=== PATIENT | male | born 1955 | race Caucasian/White ===

== ENCOUNTER 2019-01-11 13:58 | Emergency (ER) | payer MEDICARE, OTHER ==
[2019-01-11 14:04] VITALS: TEMP 98.1
[2019-01-11] MEDS ORDERED: AMOXIC-POT CLAV 875-125MG 1 EACH TAB PO STA (14:19)
[2019-01-11] MEDS ORDERED: KETOROLAC 60 MG/2 ML VIAL IM STA (14:19)
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
[2019-01-11 15:18] VITALS: PULSE 75; RESP 16
[2019-01-11] MEDS ORDERED: LABETALOL SYRINGE 5 MG/ML IVP STA (15:18)
[2019-01-11] MEDS ORDERED: cloNIDine HCL 0.2 MG TAB PO STA (15:35)
[2019-01-11 16:06] VITALS: BP 188/96
== END 2019-01-11 16:06 | disposition home or self-care (01) ==
LOC: EC 13:58
DX: K08.89 Other specified disorders of teeth and supporting structures (principal); I10 Essential (primary) hypertension; Z88.5 Allergy status to narcotic agent; Z91.02 Food additives allergy status; Z79.899 Other long term (current) drug therapy; Z96.5 Presence of tooth-root and mandibular implants; Z53.8 Procedure and treatment not carried out for other reasons
CPT/HCPCS: 99283; 96372; J1885

== ENCOUNTER 2019-01-14 10:38 | Emergency (ER) | payer MEDICARE, OTHER ==
[2019-01-14] MEDS ORDERED: ENALAPRILAT 1.25 MG/ML 1 ML VIAL IVP STA ×2 (11:19→12:46)
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
[2019-01-14 12:23] VITALS: RESP 16
[2019-01-14 13:19] VITALS: BP 152/94; PULSE 71; TEMP 97.9
== END 2019-01-14 13:18 | disposition home or self-care (01) ==
LOC: EC 10:38
DX: I10 Essential (primary) hypertension (principal); K21.9 Gastro-esophageal reflux disease without esophagitis; Z79.899 Other long term (current) drug therapy; Z91.018 Allergy to other foods; Z88.5 Allergy status to narcotic agent
CPT/HCPCS: 96374; 96376; 99283

== ENCOUNTER 2023-09-22 11:30 | Inpatient (IN) | payer MEDICARE, OTHER ==
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
[2023-09-22] MEDS: LORazepam 2 MG/ML INJ IV STA (11:51)
[2023-09-22] MEDS: SODIUM CHLORIDE 0.9% 1,000 ML IV STA (11:53)
[2023-09-22 12:05] LABS: Basophils % (A) 0 %; Eosinophils # (A) 0.2 k/uL (0-0.7); Eosinophils % (A) 2 %; HCT 50.4 % (39.0-53.0); HGB 16.4 gm/dL (13.0-17.5); Lymphocytes # (A) 2.5 k/uL (1.0-4.8); Lymphocytes % (A) 21 %; MCH 28.8 pg (25.0-35.0); MCHC 32.4 g/dL (31.0-37.0); MCV 88.9 fL (80.0-100.0); Mean Platelet Volume 8.3; Monocytes # (A) 0.5 k/uL (0-1.0); Monocytes % (A) 4 %; Neutrophils # (A) 8.2 k/uL (1.3-7.7); Neutrophils % (A) 71 %; Platelet Count 230 k/uL (150-450); RBC 5.67 m/uL (4.30-5.90); RDW 13.1 % (11.5-15.5); WBC 11.5 k/uL (3.8-10.6)
[2023-09-22 12:17] LABS: ALT 21 U/L (4-49); AST 23 U/L (17-59); African American GFR (CKD) >90 (>60 ml/min/1.73 sqM); Albumin 4.8 g/dL (3.5-5.0); Alkaline Phosphatase 97 U/L (38-126); Anion Gap 9 mmol/L; Blood Urea Nitrogen 17 mg/dL (9-20); Calcium 9.6 mg/dL (8.4-10.2); Carbon Dioxide 27 mmol/L (22-30); Chloride 102 mmol/L (98-107); Creatine Kinase 106 U/L (55-170); Glucose 215 mg/dL (74-99); Non-African American GFR(CKD) 81 (>60 ml/min/1.73 sqM); Sodium 138 mmol/L (137-145); Total Bilirubin 0.5 mg/dL (0.2-1.3); Total Protein 8.4 g/dL (6.3-8.2)
[2023-09-22 12:32] LABS: INR 0.9 (<1.2); Prothrombin Time 10.3 sec (10.0-12.5)
--- NOTE | 2023-09-22 12:42 | XR ---
EXAMINATION TYPE: XR chest 2V DATE OF EXAM: 09/22/2023 COMPARISON: 11/03/2015 HISTORY: Altered mental status TECHNIQUE: Frontal and lateral views of the chest are obtained. FINDINGS: There is no focal air space opacity, pleural effusion, or pneumothorax seen. The cardiac silhouette size is within normal limits. The osseous structures are intact. IMPRESSION: No acute cardiopulmonary process.
--- NOTE | 2023-09-22 12:50 | CT ---
EXAMINATION TYPE: CT brain wo con DATE OF EXAM: 09/22/2023 COMPARISON: 11/03/2015 HISTORY: Neuro deficits, pt states he couldn't stand and had slurred speech. CT DLP: 661.4 mGycm Automated exposure control for dose reduction was used. FINDINGS: The ventricles, basal cisterns and sulci over convexities are mildly prominent as with mild age-appro priate atrophy. There is no mass effect or shift of midline structures. No abnormal density is seen throughout the brain parenchyma. The santana-white density differentiation i s well preserved There is no acute intra or extra-axial hemorrhage. The posterior fossa including the brainstem, fourth ventricle and cerebellopontine angles are grossly normal. Intraorbital contents. Normal symmetric. Visualized paranasal sinuses and mastoid air cells are well aerated. IMPRESSION: 1. Mild age-appropriate atrophy. 2. No acute bleed or mass effect. IMPRESSION:
--- NOTE | 2023-09-22 12:59 | CT ---
EXAMINATION TYPE: CT angio head neck DATE OF EXAM: 09/22/2023 HISTORY: Neuro deficits, pt states he couldn't stand and had slurred speech. COMPARISON: None CT DLP: 661.4 mGycm. Automated Exposure Control for Dose Reduction was Utilized. TECHNIQUE: CTA scan of the head and neck is performed with IV Contrast, patient injected with 65 mL of Isovue 370, axial images are obtained, coronal and sagittal reformatted images are reviewed. 3D re constructed images are created on an independent workstation and reviewed. FINDINGS: FINDINGS: The brachiocephalic origins are widely patent and no significant stenosis. There is no significant stenosis of the common or internal carotid arteries within the neck. There is mild calcification of the carotid bifurcations. There is no stenosis of the vertebral arteries. Intracranially, there is no stenosis, segmental occlusion, sizable aneurysm sac or vascular malformat ion. IMPRESSION:. Mild atherosclerotic changes of the carotid bifurcations within the neck but no signific ant stenosis. NASCET criteria was used in interpretation of this exam?
[2023-09-22] MEDS: LABETALOL 5 MG/ML VIAL MDV IVP STA (13:02)
[2023-09-22] MEDS ORDERED: LABETALOL 5 MG/ML VIAL MDV IVP PRN (13:56)
[2023-09-22] MEDS: amLODIPine 5 MG TAB PO STA (14:40)
[2023-09-22] MEDS: ASPIRIN 325 MG TAB PO STA (14:40)
[2023-09-22] MEDS: SODIUM CHLORIDE 0.9% 1,000 ML IV SCH (14:41)
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
[2023-09-22] MEDS ORDERED: ALPRAZolam 0.5 MG TAB PO PRN (17:44)
[2023-09-22] MEDS: ATORVASTATIN 80 MG TAB PO SCH (21:03)
[2023-09-22] MEDS: hydrALAZINE HCL 20 MG/ML 1 ML VIAL IVP PRN (21:03)
[2023-09-22 22:36] LABS: Erythrocyte Sedimentation Rate 16 mm/Hr (0-20)
[2023-09-23 06:59] LABS: HCT 51.1 % (39.0-53.0); HGB 17.1 gm/dL (13.0-17.5); MCH 29.9 pg (25.0-35.0); MCHC 33.5 g/dL (31.0-37.0); MCV 89.2 fL (80.0-100.0); Mean Platelet Volume 8.9; Platelet Count 234 k/uL (150-450); RBC 5.72 m/uL (4.30-5.90); RDW 13.2 % (11.5-15.5); WBC 12.4 k/uL (3.8-10.6)
[2023-09-23 07:15] LABS: ALT 21 U/L (4-49); AST 26 U/L (17-59); African American GFR (CKD) >90 (>60 ml/min/1.73 sqM); Albumin 4.8 g/dL (3.5-5.0); Alkaline Phosphatase 96 U/L (38-126); Anion Gap 12 mmol/L; Blood Urea Nitrogen 16 mg/dL (9-20); Calcium 9.9 mg/dL (8.4-10.2); Carbon Dioxide 21 mmol/L (22-30); Chloride 107 mmol/L (98-107); Glucose 203 mg/dL (74-99); Magnesium 1.9 mg/dL (1.6-2.3); Non-African American GFR(CKD) >90 (>60 ml/min/1.73 sqM); Potassium 4.2 mmol/L (3.5-5.1); Sodium 140 mmol/L (137-145); Total Bilirubin 0.9 mg/dL (0.2-1.3); Total Protein 8.2 g/dL (6.3-8.2)
[2023-09-23] MEDS: ENOXAPARIN 40 MG/0.4 ML SYRINGE SQ SCH (08:10)
[2023-09-23] MEDS: amLODIPine 10 MG TAB PO SCH (08:10)
[2023-09-23] MEDS: ASPIRIN 81 MG PO SCH (08:10)
[2023-09-23 08:33] VITALS: RESP 16
[2023-09-23] MEDS ORDERED: ASPIRIN 325 MG TAB PO SCH (09:00)
[2023-09-23] MEDS ORDERED: amLODIPine 5 MG TAB PO SCH (09:00)
[2023-09-23 09:51] LABS: T4, Free (Free Thyroxine) 1.21 ng/dL (0.78-2.19)
[2023-09-23] MEDS: LORazepam 2 MG/ML INJ IV STA (09:54)
[2023-09-23 11:12] LABS: Chol/HDL Ratio 6.02 Ratio; LDL Cholesterol,Calculated 126.8 mg/dL (0.0-131.0)
--- NOTE | 2023-09-23 11:33 | CA ---
Transthoracic Echo Report Name: Morro Jackson Age: 67 Gender: M : 1955 Exam Date: 09/23/2023 09:05 Exam Location: [facility] Ht (in): 72 Wt (lb): 230 Ordering Physician: Simeon Haksins DO Attending/Referring Phys: Windows Application Packager Chantal Villalobos RDCS Procedure CPT: Indications: Thrombus Cardiac Hx: Technical Quality: Fair Contrast 1: Total Dose (mL): Contrast 2: Total Dose (mL): MEASUREMENTS (Male / Female) Normal Values 2D ECHO LV Diastolic Diameter PLAX 4.2 cm 4.2 - 5.9 / 3.9 - 5.3 cm LV Systolic Diameter PLAX 3.2 cm IVS Diastolic Thickness 2.1 cm 0.6 - 1.0 / 0.6 - 0.9 cm LVPW Diastolic Thickness 1.0 cm 0.6 - 1.0 / 0.6 - 0.9 cm LV Relative Wall Thickness 0.7 Aortic Root Diameter 3.9 cm LA Systolic Diameter LX 4.9 cm 3.0 - 4.0 / 2.7 - 3.8 cm DOPPLER AV Peak Velocity 179.3 cm/s AV Peak Gradient 12.9 mmHg AV Mean Velocity 129.7 cm/s AV Mean Gradient 7.1 mmHg AV Velocity Time Integral 28.7 cm LVOT Peak Velocity 99.9 cm/s LVOT Peak Gradient 4.0 mmHg LVOT Velocity Time Integral 17.3 cm Mitral E Point Velocity 52.2 cm/s Mitral A Point Velocity 103.1 cm/s Mitral E to A Ratio 0.5 MV Deceleration Time 151.3 ms MV E' Velocity 7.3 cm/s Mitral E to MV E' Ratio 7.2 FINDINGS Left Ventricle Left ventricular ejection fraction is estimated at 50-55 %. Moderately increased left ventricular wall thickness. Right Ventricle Right ventricle not well visualized. Right Atrium Right atrium not well visualized. Left Atrium Mild left atrial dilatation. Mitral Valve Mild mitral regurgitation. Aortic Valve Aortic valve not well visualized. Tricuspid Valve Mild tricuspid regurgitation. Pulmonic Valve Trace pulmonic regurgitation. Pericardium Small pericardial effusion. Aorta Normal size aortic root and proximal ascending aorta. CONCLUSIONS Previous echo recorded on 01/14/2014. Left ventricular ejection fraction 50-55% Moderate increased left ventricular wall thickness Mild mitral regurgitation Mild tricuspid regurgitation Small pericardial, no cardiac tamponade physiology Previewed by: Dr. Thuan Carolina DO (Electronically Signed) Final Date: 23 September 2023 11:32
--- NOTE | 2023-09-23 12:54 | MR ---
EXAMINATION TYPE: MR brain wo con DATE OF EXAM: 09/23/2023 12:37 PM CLINICAL INDICATION:Male, 67 years old with history of CVA, aphasia;, CVA, aphasia COMPARISON: 09/22/2023.. TECHNIQUE: Multi planar, multi sequence imaging was performed through the brain including: T1, T2, In version recovery, Diffusion weighted imaging, and gradient echo imaging. No gadolinium was given. FINDINGS: Focus of restricted diffusion within the left higinio also an area more anteriorly and ill-def ined area more in the middle left higinio. High T2 probable remote injury to the left frontal lobe. Mild cerebral atrophy with proportional dilation of ventricular system. Scattered foci of high T2 signa l intensity are seen within the periventricular white matter. Midline structures show no abnormality. The bone marrow signal is within normal limits. Paranasal sinuses and mastoid air cells: No significant paranasal sinus disease. Visualized orbits: Orbital contents are intact. IMPRESSION: 1. Acute/subacute CVA involving the left higinio. 2. Nonspecific white matter changes, likely secondary to small vessel ischemic disease.
[2023-09-23] MEDS: CLOPIDOGREL 75 MG TAB PO SCH (13:52)
--- NOTE | 2023-09-23 14:46 | P.PN ---
Subjective Progress Note Date: 09/23/23 History of Presenting Illness: Patient is a very pleasant 67-year-old male with a past medical history of hypertension, hyperlipidemia, GERD, and cannabis use. He is currently not on any medications and does not follow with a PCP. He presented to the emergency department on 09/22/2023 with a chief complaint of expressive aphasia and headache. Upon arrival to the emergency department patient underwent full evaluation. Vital signs upon arrival show patient to be in significant hypertensive urgency with blood pressure of 235/133, heart rate 96, respiratory rate 20, temp 97.8 F, and SpO2 of 98% on room air. EKG completed showing normal sinus rhythm at 84 bpm with occasional PVC and T wave inversions in lateral leads I and aVL. No previous EKGs available for comparison. CT brain completed revealing mild age-appropriate atrophy negative for acute process, bleed, or mass. CTA neck showing mild atherosclerotic changes of the carotid bifurcations within the neck but no significant stenosis. CTA head negative for acute process showing no stenosis, occlusion, or sizable aneurysm. Labs completed and reviewed. CBC showing mild leukocytosis with WBC count of 11.5. Coagulation profile normal findings. BMP unremarkable with exception of hyperglycemia with a glucose of 215. Liver profile unremarkable. Patient was given aspirin 325 mg p.o. x 1 dose, Ativan 1 mg IVP for anxiety and labetalol 20 mg IVP for hypertensive urgency. Patient was admitted under our services with consultation to neurology. Physical exam: Patient seen and fully evaluated at bedside this morning he continues to have mild expressive aphasia and slurred speech. No other neurodeficits noted. Patient very anxious and agitated this morning. Patient reports just being upset about hospitalization and lack of sleep. Vital signs reviewed and stable. General: Nontoxic, no distress and appears stated age. Derm: Skin warm and dry, normal coloration for ethnicity. Head: Atraumatic, normocephalic and symmetric. Eyes: EOMs intact, no lid lag, and anicteric sclera Mouth: no lip lesions, mucus membranes moist Cardiovascular: regular rate and rhythm with normal S1S2, no murmur, positive posterior tibial pulses bilaterally, and cap refill < 2 seconds. Lungs: Respirations even, regular, and unlabored on room air. Lungs CTA bilaterally, no rhonchi, no rales, no wheezing, and no accessory muscle usage. Abdominal: soft, nontender to palpation, no guarding, no appreciable organomegaly Ext: ROM intact. No gross muscle atrophy, no edema, no contractures Neuro: Moderate expressive aphasia with mild slurred speech, face symmetrical and CN II-XII grossly intact with no other noted focal neuro deficits Psych: Alert and oriented to person, place, time, and situation. Appropriate and pleasant affect. Assessment and Plan of Care: Neurological deficits including slurred speech with expressive aphasia along with balance and gait disturbances, likely acute ischemic CVA Hypertensive urgency Headache Newly diagnosed type 2 diabetes mellitus with A1c of 7.8% Newly diagnosed hyperlipidemia -Consult neurology, appreciate recommendations -MRI brain without contrast scheduled for this afternoon. -Echocardiogram completed and pending results. -TSH was high at 7.920 with normal free T4 of 1.21 -Lipid profile showing elevated triglycerides of 254, elevated total cholesterol of 213, elevated LDL of 50.80, and low HDL of 35.40. -Hgb A1c elevated at 7.8%, patient will require discharge home on Glucophage -Continue NIH stroke scale with neuro checks every 4 hours and as needed -Patient started on aspirin 81 mg daily and atorvastatin 80 mg nightly. -Allowing for permissive hypertension secondary to concerns of acute ischemic CVA,. Patient to be given hydralazine 10 mg IVP as needed for systolic blood pressures greater than 220 and/or diastolic greater than 120 and will increase amlodipine to 10 mg daily. -PT/OT consult -Speech and language pathologist consulted. -Fall precautions and provide pt with assistance as needed Data and imaging reviewed: -TSH was high at 7.920 with normal free T4 of 1.21 -Lipid profile showing elevated triglycerides of 254, elevated total cholesterol of 213, elevated LDL of 50.80, and low HDL of 35.40. -Hgb A1c elevated at 7.8%, patient will require discharge home on Glucophage -Blood pressure 227/112 with heart rate 88, respiratory rate 16, temp 97.8 F, and SpO2 of 96% on room air. Patient to be given hydralazine 10 mg IVP as needed for systolic blood pressures greater than 220 and/or diastolic greater than 120 and will increase amlodipine to 10 mg daily. CODE STATUS: Full code DVT prophylaxis: Lovenox Anticipated discharge date: Clinical course to determine Anticipated discharge place: Clinical course to determine Patient was seen independently by Nurse Practitioner. This document was prepared using [email or web address] dictation software. Please allow for errors in sharepoint engineer while rare they do occur. Cachorro Tong NP rendered care for this patient independently, reviewed the findings and plan as documented in the note above. I did not physically speak with or examine the patient on this date. Objective - Vital Signs Vital signs: Vital Signs Temp 96.4 F L 09/23/23 04:00 Pulse 86 09/23/23 04:00 Resp 18 09/23/23 04:00 BP 208/103 09/23/23 04:00 Pulse Ox 97 09/23/23 04:00 FiO2 Intake & Output 09/22/23 09/23/23 09/23/23 18:59 06:59 18:59 Intake Total 240 Balance 240 Weight 104.326 kg Intake: Oral 240 Other: Voiding Method Toilet Urinal # Bowel Movements 0 - Labs CBC & Chem 7: 09/23/23 06:19 09/23/23 06:19 Labs: Abnormal Lab Results - Last 24 Hours (Table) 09/22/23 09/22/23 09/23/23 Range/Units 11:48 11:48 06:19 WBC 11.5 H 12.4 H (3.8-10.6) k/uL Neutrophils # 8.2 H (1.3-7.7) k/uL Carbon Dioxide (22-30) mmol/L Glucose 215 H (74-99) mg/dL Total Protein 8.4 H (6.3-8.2) g/dL TSH (0.465-4.680) mIU/L 09/23/23 Range/Units 06:19 WBC (3.8-10.6) k/uL Neutrophils # (1.3-7.7) k/uL Carbon Dioxide 21 L (22-30) mmol/L Glucose 203 H (74-99) mg/dL Total Protein (6.3-8.2) g/dL TSH 7.920 H (0.465-4.680) mIU/L
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
[2023-09-24] MEDS: metFORMIN 500 MG TAB PO SCH (08:23)
[2023-09-24] MEDS: lisinopriL 20 MG TAB PO SCH (11:12)
--- NOTE | 2023-09-24 11:17 | P.PN ---
Subjective Progress Note Date: 09/24/23 Hospital Course: Patient is a very pleasant 67-year-old male with a past medical history of hypertension, hyperlipidemia, GERD, and cannabis use. He is currently not on any medications and does not follow with a PCP. He presented to the emergency department on 09/22/2023 with a chief complaint of expressive aphasia and headache. Upon arrival to the emergency department patient underwent full evaluation. Vital signs upon arrival show patient to be in significant hypertensive urgency with blood pressure of 235/133, heart rate 96, respiratory rate 20, temp 97.8 F, and SpO2 of 98% on room air. EKG completed showing normal sinus rhythm at 84 bpm with occasional PVC and T wave inversions in lateral leads I and aVL. No previous EKGs available for comparison. CT brain completed revealing mild age-appropriate atrophy negative for acute process, bleed, or mass. CTA neck showing mild atherosclerotic changes of the carotid bifurcations within the neck but no significant stenosis. CTA head negative for acute process showing no stenosis, occlusion, or sizable aneurysm. Labs completed and reviewed. CBC showing mild leukocytosis with WBC count of 11.5. Coagulation profile normal findings. BMP unremarkable with exception of hyperglycemia with a glucose of 215. Liver profile unremarkable. Patient was given aspirin 325 mg p.o. x 1 dose, Ativan 1 mg IVP for anxiety and labetalol 20 mg IVP for hypertensive urgency. Patient was admitted under our services with consultation to neurology. MRI completed showing acute/subacute CVA involving the left higinio. Placed order for Plavix 75 mg daily in addition to aspirin 81 mg daily and atorvastatin 40 mg nightly. TSH was high at 7.920 with normal free T4 of 1.21 Lipid profile showing elevated triglycerides of 254, elevated total cholesterol of 213, elevated LDL of 50.80, and low HDL of 35.40. Hgb A1c elevated at 7.8%, patient will require discharge home on Glucophage. Echocardiogram completed showing an EF of 50 to 55% with moderate increased left ventricular wall thickness, mild mitral regurgitation and mild tricuspid regurgitation with a small pericardial effusion and no cardiac tamponade. Physical exam: Patient seen and fully evaluated at bedside this morning. Per patient and patient's at bedside patient developed worsening neurological deficits yesterday afternoon. He is now not only having slurred speech and expressive aphasia but has developed right-sided facial droop and right upper and lower extremity weakness. Patient has some movement intact but unable to maintenance trainer anything with right hand and significant difficulties with standing. Vital signs reviewed and stable. General: Nontoxic, no distress and appears stated age. Derm: Skin warm and dry, normal coloration for ethnicity. Head: Atraumatic, normocephalic and symmetric. Patient with moderate right- sided facial droop affecting eyebrow drooping and right-sided facial and mouth drooping. Eyes: EOMs intact, no lid lag, and anicteric sclera Mouth: no lip lesions, mucus membranes moist. Cardiovascular: regular rate and rhythm with normal S1S2, no murmur, positive posterior tibial pulses bilaterally, and cap refill < 2 seconds. Lungs: Respirations even, regular, and unlabored on room air. Lungs CTA bilaterally, no rhonchi, no rales, no wheezing, and no accessory muscle usage. Abdominal: soft, nontender to palpation, no guarding, no appreciable organomegaly Ext: No gross muscle atrophy, no edema, no contractures. Moderate right upper and lower extremity weakness. Neuro: Moderate expressive aphasia with mild slurred speech, face symmetrical and CN II-XII grossly intact with no other noted focal neuro deficits Psych: Alert and oriented to person, place, time, and situation. Appropriate and pleasant affect. Assessment and Plan of Care: Acute ischemic CVA of left higinio with right-sided deficits and speech deficits Hypertensive urgency Headache Newly diagnosed typeAcute ischemic 2 diabetes mellitus with A1c of 7.8% Newly diagnosed hyperlipidemia -Neurology following, appreciate recommendations -MRI completed showing acute/subacute CVA involving the left higinio. -Placed order for Plavix 75 mg daily in addition to aspirin 81 mg daily and atorvastatin 40 mg nightly. -Echocardiogram completed showing an EF of 50 to 55% with moderate increased left ventricular wall thickness, mild mitral regurgitation and mild tricuspid regurgitation with a small pericardial effusion and no cardiac tamponade. -TSH was high at 7.920 with normal free T4 of 1.21 -Lipid profile showing elevated triglycerides of 254, elevated total cholesterol of 213, elevated LDL of 50.80, and low HDL of 35.40. -Hgb A1c elevated at 7.8%, patient will require discharge home on Glucophage -Continue NIH stroke scale with neuro checks every 4 hours and as needed -Initially allowed for permissive hypertension, after 24 hours patient was started on amlodipine 10 mg daily and today pressures remain elevated 194/103 this morning and patient started on lisinopril 40 mg daily in addition to amlodipine. -PT/OT consulted -Speech and language pathologist consulted. -Fall precautions and provide pt with assistance as needed Data and imaging reviewed: -MRI completed showing acute/subacute CVA involving the left higinio. -TSH was high at 7.920 with normal free T4 of 1.21 Lipid profile showing elevated triglycerides of 254, elevated total cholesterol of 213, elevated LDL of 50.80, and low HDL of 35.40. Hgb A1c elevated at 7.8%, patient will require discharge home on Glucophage. -Echocardiogram completed showing an EF of 50 to 55% with moderate increased left ventricular wall thickness, mild mitral regurgitation and mild tricuspid regurgitation with a small pericardial effusion and no cardiac tamponade. -Vital signs reviewed. Blood pressures remain significantly elevated and was 194/103 this morning, heart rate 85, respiratory rate 16, temp 98.0 F, and SpO2 of 95% on room air. CODE STATUS: Full code DVT prophylaxis: Lovenox Anticipated discharge date: Clinical course to determine Anticipated discharge place: Clinical course to determine Patient was seen independently by Nurse Practitioner. This document was prepared using [employer] dictation software. Please allow for errors in equipment service associate while rare they do occur. Cachorro Tong NP rendered care for this patient independently, reviewed the findings and plan as documented in the note above. I did not physically speak with or examine the patient on this date. Repeat CT head reviewed no new process identified. Objective - Vital Signs Vital signs: Vital Signs Temp 96.3 F L 09/24/23 04:00 Pulse 94 09/24/23 04:00 Resp 16 09/24/23 04:00 BP 188/113 09/24/23 04:00 Pulse Ox 94 L 09/24/23 04:00 FiO2 Intake & Output 09/23/23 09/24/23 09/24/23 18:59 06:59 18:59 Intake Total 688 20 Balance 688 20 Intake: IV 20 20 Invasive Line 1 20 20 Oral 668 Other: Voiding Method Toilet Toilet Urinal Urinal # Voids 2 2 - Labs CBC & Chem 7: 09/23/23 06:19 09/23/23 06:19 Labs: Abnormal Lab Results - Last 24 Hours (Table) 09/23/23 09/23/23 Range/Units 06:19 06:19 Hemoglobin A1c 7.8 H (<=6.0) % Triglycerides 254.00 H (0.00-149.00) mg/dL Cholesterol 213.00 H (0.00-200.00) mg/dL VLDL Cholesterol, Calc 50.80 H (5.00-40.00) mg/dL HDL Cholesterol 35.40 L (40.00-60.00) mg/dL
[2023-09-24] MEDS ORDERED: DEXTROSE 50% SYRINGE 50 ML IVP PRN ×2 (12:57)
--- NOTE | 2023-09-24 14:38 | P.PN ---
Subjective Progress Note Date: 09/24/23 I am following-up with patient and he feels about the same compared to yesterday. The nurse stated she feels his right sided weakness is new and happened yesterday in afternoon but upon examining yesterday in afternoon he had it. Objective - Vital Signs Vital signs: Vital Signs Temp 98.0 F 09/24/23 08:20 Pulse 97 09/24/23 11:10 Resp 16 09/24/23 11:10 BP 169/118 09/24/23 11:10 Pulse Ox 96 09/24/23 11:10 FiO2 Intake & Output 09/23/23 09/24/23 09/24/23 18:59 06:59 18:59 Intake Total 688 20 486 Balance 688 20 486 Intake: IV 20 20 10 Invasive Line 1 20 20 10 Oral 668 476 Other: Voiding Method Toilet Toilet Toilet Urinal Urinal Urinal # Voids 2 2 - Exam GENERAL: The patient is sitting in a recliner chair and is not in acute distress. NEUROLOGICAL: Higher mental function: The patient is awake, alert, oriented to self, place and time. Patient is following commands. No aphasia and no neglect. Cranial nerves: The pupils are round, equal and reactive to light and accommodation. Visual ignacio are full to confrontation throughout. Extraocular movement is intact no nystagmus is noted. Facial sensation is normal to touch throughout. The facial strength is moderate decreased on right lower.. Hearing is normal bilaterally to hand rub. Tongue is midline and moved [id number] without any difficulty. Mild to moderate dysarthria is noted. Shoulder shrug is normal bilaterally. Motor: The strength is right upper is 4-4+. and right lower is 4-4+. Left side 5 over 5 throughout. Normal tone and bulk. Cerebellum: Very slowin finger to nose on right and because of weakness. Normal finger to nose on left. Sensation: Decreased over the left 4th and 5th digit distribution that is old. Reflexes (right/left): 2+ throughout. Plantars are downgoing bilaterally. Some of the workup during his hospital visit consisted of: Hemoglobin A1c 7.8, calcium is 9.9, magnesium is 1.9 lipid panel: Triglyceride 254, cholesterol is 213, LDL is 126, HDL is 35 TSH is 7.920 and the free T4 is 1.21. CT of the head is reported as mild age-appropriate atrophy. No acute bleed or mass effect. Personally reviewed the CT and agree with report. CT angiography of the head and neck was reported as mild after sclerotic changes of the carotid bifurcation within the neck but no significant stenosis. 2-D echo was reported as a previous echo recorded on 01/15/2024. Ejection fraction of 50-55%. Moderate increased left ventricular wall thickness. MRI the brain is reported as acute/subacute CVA involving the left higinio appeared nonspecific white matter changes, likely secondary due to small vessel ischemic disease. I personally reviewed the MRI and agree it's involving the left higinio medial central higinio. - Labs CBC & Chem 7: 09/23/23 06:19 09/23/23 06:19 Assessment and Plan Assessment: This is a 67-year-old gentleman who presented emergency department because of dysarthria, confusion and pressure behind his left eye. MR the brain the shows acute to subacute stroke over the the left higinio. Acute to subacute ischemic stroke over the left higinio (On examination has dysarthria, right facial weakness and right hemiparesis) and this seems likely due to chronic small vessel disease due to his risk factors and he has a history of hypertension, diabetes mellitus and dyslipidemia. Diabetes mellitus and his hemoglobin A1c 7.8 Dyslipidemia Accelerated hypertension and on presentation as high as 230s over 130s History of left ulnar neuropathy History of hypertension and per he is not on any medication for blood pressure since the was felt was controlled Plan: Patient was started on aspirin 81 mg daily and Plavix 75 mg daily. He was not on any home antiplatelets. Recommend dual antiplatelets for 21 days and after 21 days, stop Plavix but continue aspirin indefinitely. Patient is on Lipitor 80 mg daily at bedtime Recommend a 30 day event monitor Continue neuro checks Cardiac monitoring PT OT and ENVIRONMENTAL MANAGEMENT SPECIALIST are consulted. I feel patient would benefit from inpatient rehab. We'll defer the blood pressure management to the primary team Recommend the better control of his blood pressure at home and to moderate his blood pressure at home at. As well as a control his other risk factors such as diabetes and dyslipidemia Upon discharge recommend the patient to follow-up with a neurologist as an outpatient within the 2 weeks DVT prophylaxis the patient is on Lovenox Plan discussed with the patient, his significant other who is at bedside, nurse and the primary team Otherwise, no additional neurological work-up. Please notify neurology team if any further concerns. Time with Patient: Less than 30
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
--- NOTE | 2023-09-24 15:16 | CT ---
EXAMINATION TYPE: CT brain wo con DATE OF EXAM: 09/24/2023 COMPARISON: 09/23/2023 MRI brain, 09/22/2023 CT brain INDICATION: weakness rt side DLP: 1187.4 mGycm, Automated exposure control for dose reduction was used. CONTRAST: None CT of the brain is performed utilizing 3 mm thick sections through the posterior fossa and 3 mm thick sections through the remaining calvarium. Study is performed within 24 hours of arrival to the hosp ital. No abnormal hyperdensity is present to suggest an acute intracranial hemorrhage. No mass lesion is evident. The area of previous acute ischemia is evident within the left anterior brain stem and within the bra instem near the level of the left cerebellar peduncle. Series 201 images 24-25. This can be compatibl e with normal maturation of the acute ischemic area. No new ischemic areas are otherwise evident. Ventricles and sulci are appropriate for the patient age. Paranasal sinuses and mastoid air cells within the [id number] are clear. IMPRESSION: 1. Normally maturing acute ischemic area within the left brainstem.
[2023-09-24 16:14] LABS: Glucose,Whole Blood 225 mg/dL (70-110)
[2023-09-24] MEDS: INSULIN ASPART (NovoLOG) 100 UNIT/ML VIAL SQ SCH (16:19)
[2023-09-24 20:03] LABS: Glucose,Whole Blood 185 mg/dL (70-110)
[2023-09-25 05:47] LABS: Glucose,Whole Blood 220 mg/dL (70-110)
--- NOTE | 2023-09-25 10:25 | P.DS ---
Providers Date of admission: 09/23/23 15:19 Expected date of discharge: 09/25/23 Attending physician: Mariza Sorenson DO Consults: 09/22/23 13:57 Consult Physician Urgent Consulting Provider: Evangelista Luz Consult Reason/Comments: tia Do you want consulting provider notified?: Yes 09/24/23 09:31 Consult Physician Routine Consulting Provider: Pascual Messina Consult Reason/Comments: eval for IPR Do you want consulting provider notified?: Yes Primary care physician: Stated None Hospital Course: 67-year-old male with a past medical history of hypertension, hyperlipidemia, GERD, and cannabis use. He is currently not on any medications and does not follow with a PCP. He presented to the emergency department on 09/22/2023 with a chief complaint of expressive aphasia and headache. Vital signs showed BP 235/133, HR 96, RR 20, T 97.8 F, SpO2 of 98% on room air. EKG completed showing normal sinus rhythm at 84 bpm with occasional PVC and T wave inversions in lateral leads I and aVL. CT brain completed revealing mild age-appropriate atrophy. CTA neck showing mild atherosclerotic changes of the carotid bifurcations within the neck but no significant stenosis. CBC showed WBC count of 11.5. Coagulation profile normal findings. BMP glucose of 215. Liver profile unremarkable. Patient was given ASA 325 mg PO x 1 dose, Ativan 1 mg IVP for anxiety and labetalol 20 mg IVP for hypertensive urgency. Patient was admitted under our services with consultation to neurology. MRI completed showing acute/subacute CVA involving the left higinio. Started on P lavix 75 mg PO QD in addition to aspirin 81 mg PO QD and atorvastatin 40 mg PO QHS. TSH was high at 7.920 with normal free T4 of 1.21. Lipid profile showing triglycerides of 254, total cholesterol of 213, LDL of 50.80, and HDL of 35.40. Hgb A1c elevated at 7.8%. Patient will require discharge home on Glucophage. Echocardiogram completed showing an EF of 50 to 55% with moderate LV thickness, mild MR/TR, small pericardial effusion and no cardiac tamponade. Patient had issues with blood pressure control. Started on Amlodipine 10 mg PO QD, Lisinopril 40 mg PO QD. 09/25 Patient was seen and examined. Accepted to [facility]. Motivated. No complaints. Emotional. Vital signs reviewed and stable. General: Nontoxic, no distress and appears stated age. Derm: Skin warm and dry, normal coloration for ethnicity. Head: Atraumatic, normocephalic and symmetric. Right-sided facial droop. Eyes: EOMs intact, no lid lag, and anicteric sclera Cardiovascular: regular rate and rhythm with normal S1S2, no murmur Lungs: Respirations even, regular, and unlabored on room air. Lungs CTA bilaterally, no rhonchi, no rales, no wheezing, and no accessory muscle usage. Ext: No gross muscle atrophy, no edema, no contractures. Right upper and lower extremity strength 3/5, Left upper and lower extremity 5/5. Neuro: Moderate expressive aphasia with mild slurred speech, face symmetrical and CN II-XII grossly intact with no other noted focal neuro deficits other than above. Psych: Alert and oriented to person, place, time, and situation. Appropriate and pleasant affect. Discharge Diagnosis: Acute ischemic CVA of left higinio with right-sided deficits and speech deficits Hypertensive urgency Headache Newly diagnosed type 2 diabetes mellitus with A1c of 7.8% Newly diagnosed hyperlipidemia This complex discharge took 35 minutes to complete. Patient Condition at Discharge: Stable Plan - Discharge Summary Discharge Rx Participant: No New Discharge Prescriptions: New Aspirin 81 mg PO DAILY 90 Days #90 tab Atorvastatin [Lipitor] 40 mg PO DAILY 90 Days #90 tablet amLODIPine [Norvasc] 10 mg PO DAILY 90 Days #90 tab Clopidogrel [Plavix] 75 mg PO DAILY 21 Days #21 tab metFORMIN HCL [Glucophage] 500 mg PO BID-W/MEALS 90 Days #180 tab lisinopriL [Zestril] 40 mg PO DAILY tab Discharge Medication List Aspirin 81 mg PO DAILY 90 Days #90 tab 09/24/23 [Rx] Atorvastatin [Lipitor] 40 mg PO DAILY 90 Days #90 tablet 09/24/23 [Rx] Clopidogrel [Plavix] 75 mg PO DAILY 21 Days #21 tab 09/24/23 [Rx] amLODIPine [Norvasc] 10 mg PO DAILY 90 Days #90 tab 09/24/23 [Rx] metFORMIN HCL [Glucophage] 500 mg PO BID-W/MEALS 90 Days #180 tab 09/24/23 [Rx] lisinopriL [Zestril] 40 mg PO DAILY tab 09/25/23 [Rx] Follow up Appointment(s)/Referral(s): Malaika Piper MD [Medical Doctor] - 1 Week Nonstaff,Physician [REFERRING] - 1-2 Days Activity/Diet/Wound Care/Special Instructions: Diet: Cardiac Discharge Disposition: DC/TRNS INTERMEDIATE CARE FAC
[2023-09-25 11:12] VITALS: PULSE 106; TEMP 97.4
[2023-09-25 11:40] LABS: Glucose,Whole Blood 178 mg/dL (70-110)
[2023-09-25 15:20] VITALS: BP 150/75
== END 2023-09-25 13:19 | DRG 65 ==
LOC: EC 11:30 → 3SCARD 13:56 → OBSVTOIN 09-23 15:19 → 3SCARD 09-23 22:17
PROVIDERS: ADMIT Internal Medicine; ATTEND Internal Medicine
DX: I63.29 Cerebral infarction due to unspecified occlusion or stenosis of other precerebral arteries (principal); E87.1 Hypo-osmolality and hyponatremia; G81.91 Hemiplegia, unspecified affecting right dominant side; I31.39 Other pericardial effusion (noninflammatory); E11.9 Type 2 diabetes mellitus without complications; I10 Essential (primary) hypertension; I16.0 Hypertensive urgency; I08.1 Rheumatic disorders of both mitral and tricuspid valves; E78.1 Pure hyperglyceridemia; F41.9 Anxiety disorder, unspecified; R47.1 Dysarthria and anarthria; R29.810 Facial weakness; Z87.442 Personal history of urinary calculi; I25.2 Old myocardial infarction; I49.3 Ventricular premature depolarization; E11.42 Type 2 diabetes mellitus with diabetic polyneuropathy; R26.9 Unspecified abnormalities of gait and mobility; N40.0 Benign prostatic hyperplasia without lower urinary tract symptoms; R47.01 Aphasia; Z79.02 Long term (current) use of antithrombotics/antiplatelets; Z79.82 Long term (current) use of aspirin; Z79.84 Long term (current) use of oral hypoglycemic drugs; Z79.899 Other long term (current) drug therapy; Z88.8 Allergy status to other drugs, medicaments and biological substances; Z88.5 Allergy status to narcotic agent; Z88.0 Allergy status to penicillin
CPT/HCPCS: 36415; 70450; 70496; 70498; 70551; 71046; 80053; 80061; 82550; 83036; 83735; 84439; 84443; 85025; 85027; 85610; 85652; 85730; 93005; 93306; 96361; 96374; 96375; 99291

== ENCOUNTER 2024-03-06 07:37 | Emergency (ER) | payer MEDICARE, OTHER ==
[2024-03-06 07:48] VITALS: RESP 18; TEMP 98
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
[2024-03-06] MEDS: traMADol 50 MG STARTER PACK 3 TAB BTL PO STA (08:32)
[2024-03-06] MEDS: CLINDAMYCIN 150 MG CAP PO STA (08:33)
[2024-03-06 08:49] VITALS: BP 182/101; PULSE 82
== END 2024-03-06 08:51 | disposition home or self-care (01) ==
LOC: EC 07:37
DX: K04.7 Periapical abscess without sinus (principal); K02.9 Dental caries, unspecified; Z87.891 Personal history of nicotine dependence; Z88.5 Allergy status to narcotic agent; Z88.0 Allergy status to penicillin; Z88.8 Allergy status to other drugs, medicaments and biological substances
CPT/HCPCS: 99282